=== PATIENT | male | born 1985 | race Caucasian/White ===

== ENCOUNTER 2017-06-16 12:44 | Emergency (ER) | payer MEDICAID, OTHER ==
[~2017-06-16] VITALS: Ht 165.1 cm; Wt 68.0 kg
[2017-06-16 12:56] VITALS: BP 124/66
== END 2017-06-16 13:02 | disposition home or self-care (01) ==
LOC: ER 12:48
DX: M54.6 Pain in thoracic spine (principal); M54.2 Cervicalgia
CPT/HCPCS: A4606; Z7610